=== PATIENT | female | born 1990 | race Caucasian/White ===

== ENCOUNTER 2017-01-18 18:25 | Emergency (ER) | payer MEDICAID, OTHER ==
[2017-01-18 19:17] LABS: Basophils # (auto) 0 uL; Basophils % (auto) 0.4 % (0.0-2.0); CONDITION Y; Eosinophils # (auto) 0 uL; Eosinophils % (auto) 0.6 % (0.0-7.0); Hematocrit 38.6 % (36.0-46.0); Hemoglobin 12.9 g/dL (12.2-16.2); Lymphocytes # (auto) 1.5 uL; Lymphocytes % (auto) 25.3 % (10.0-50.0); Mean Corpuscular Hemoglobin 29.7 pg (28.0-32.0); Mean Corpuscular Hgb Conc. 33.3 g/dL (32.0-36.0); Mean Corpuscular Volume 89.1 fL (80.0-100.0); Mean Platelet Volume 8.7 fL (7.4-10.4); Monocytes # (auto) 0.6 uL; Monocytes % (auto) 9.6 % (0.0-12.0); Neutrophils # (auto) 3.8 uL; Neutrophils % (auto) 64.1 % (37.0-80.0); Platelet Count (auto) 272 10^3/uL (140-450); Red Cell Distribution Width 13.7 % (11.6-16.0)
[2017-01-18 19:36] LABS: Albumin 3.2 g/dL (3.4-5.0); BUN/Creatinine Ratio 11.4; Calcium 7.4 mg/dL (8.5-10.1); Potassium 3.3 mmol/L (3.5-5.1)
[2017-01-18 19:38] LABS: Bilirubin, Total 0.4 mg/dL (0.2-1.0); Total Protein 6.4 g/dL (6.4-8.2)
[2017-01-18] MEDS ORDERED: SODIUM CHLORIDE 0.9% 1,000 ML IV ONE (20:30)
[2017-01-18] MEDS ORDERED: POTASSIUM CHL 20 Meq TABLET PO ONE (20:30)
[2017-01-18 20:59] LABS: Urine Bilirubin Negative (Negative); Urine Blood Negative /uL (Negative); Urine Color Yellow (Yellow); Urine Glucose Normal (Normal); Urine Ketone TRACE (Negative); Urine Mucus FEW (None Seen); Urine Nitrite Negative (Negative); Urine RBC <1 /hpf (0 - 4); Urine Squamous Epithelial Cell FEW /hpf (<5); Urine Urobilinogen Normal (Negative)
[2017-01-18 23:30] VITALS: BP 103/43
[2017-01-19] MEDS ORDERED: ONDANSETRON ODT 4 MG TAB PO ONE (00:45)
== END 2017-01-19 00:51 | disposition home or self-care (01) ==
LOC: ER 18:39
DX: R55 Syncope and collapse (principal); E86.0 Dehydration; E87.6 Hypokalemia; R19.7 Diarrhea, unspecified
CPT/HCPCS: 36415; 74176; 80053; 80307; 81001; 81025; 85025; 93005; 96360; 99285; J7030; Q0162

== ENCOUNTER 2018-12-25 19:06 | Emergency (ER) | payer MEDICAID, OTHER | END 2018-12-25 19:29 | disposition left against medical advice (07) | LOC: ER 19:12 | DX: O20.8 Other hemorrhage in early pregnancy (principal); Z3A.00 Weeks of gestation of pregnancy not specified; Z53.21 Procedure and treatment not carried out due to patient leaving prior to being seen by health care provider ==

== ENCOUNTER 2019-01-21 00:57 | Emergency (ER) | payer MEDICAID, OTHER ==
[~2019-01-21] VITALS: Ht 165.1 cm; Wt 54.4 kg
[2019-01-21 02:33] LABS: Basophils # (auto) 0 uL; Basophils % (auto) 0.3 % (0.0-2.0); Eosinophils # (auto) 0 uL; Hematocrit 38.1 % (36.0-46.0); Hemoglobin 13.2 g/dL (12.2-16.2); Lymphocytes # (auto) 1.2 uL; Lymphocytes % (auto) 9.8 % (10.0-50.0); Mean Corpuscular Hemoglobin 30.5 pg (28.0-32.0); Mean Corpuscular Hgb Conc. 34.6 g/dL (32.0-36.0); Mean Corpuscular Volume 88.2 fL (80.0-100.0); Monocytes # (auto) 0.6 uL; Monocytes % (auto) 4.6 % (0.0-12.0); Neutrophils # (auto) 10.5 uL; Neutrophils % (auto) 85.3 % (37.0-80.0); Nucleated Red Blood Cells % 0.1 %; Platelet Count (auto) 249 10^3/uL (140-450); Red Blood Cells 4.32 10^6/uL (4.0-5.20); Red Cell Distribution Width 14.6 % (11.8-14.3); White Blood Cell 12.3 10^3/uL (4.4-10.8)
[2019-01-21 02:46] LABS: Albumin 3.5 g/dL (3.4-5.0); Anion Gap 10 (5-15); Blood Urea Nitrogen 10 mg/dL (7-18); Calcium 8.6 mg/dL (8.5-10.1); Carbon Dioxide 23 mmol/L (21-32); Chloride 106 mmol/L (98-107); Glucose 104 mg/dL (74-106); Potassium 3.3 mmol/L (3.5-5.1); Sodium 139 mmol/L (136-145)
[2019-01-21 02:48] LABS: Urine Bacteria NONE SEEN /hpf (None Seen); Urine Blood Negative /uL (Negative); Urine Mucus FEW (None Seen); Urine Specific Gravity 1.015 (1.001-1.035); Urine WBC 2 /hpf (0 - 5)
[2019-01-21 02:49] LABS: Alanine Aminotransferase 20 U/L (13-56); Aspartate Aminotransferase 13 U/L (15-37); BUN/Creatinine Ratio 16.1; Blood Alcohol < 3.0 mg/dL (0-5); GFR African American 146 mL/min; GFR Non-African American 121 mL/min
[2019-01-21 02:59] LABS: Alkaline Phosphatase 61 U/L (45-117); Bilirubin, Total 0.4 mg/dL (0.2-1.0)
[2019-01-21 03:03] LABS: Alcohol, Urine < 3.0 mg/dL (0-5); Amphetamine Screen, Urine NEGATIVE (NEGATIVE); Barbiturate Scree,Urine NEGATIVE (NEGATIVE); Benzodiazephine Screen, Urine NEGATIVE (NEGATIVE); Cannabinoid Screen, Urine NEGATIVE (NEGATIVE); Cocaine Screen, Urine NEGATIVE (NEGATIVE); Opiate Scree,Urine NEGATIVE (NEGATIVE); Phencyclidine Screen, Urine NEGATIVE (NEGATIVE)
[2019-01-21 03:12] LABS: Acetaminophen < 2.0 ug/mL (10-30); Salicylate < 1.7 mg/dL (2.8-20.0)
[2019-01-21 07:21] VITALS: BP 99/63
== END 2019-01-21 08:30 | disposition home or self-care (01) ==
LOC: ER 01:02
DX: O20.0 Threatened abortion (principal); O99.611 Diseases of the digestive system complicating pregnancy, first trimester; O9A.211 Injury, poisoning and certain other consequences of external causes complicating pregnancy, first trimester; S80.811A Abrasion, right lower leg, initial encounter; Z3A.01 Less than 8 weeks gestation of pregnancy
CPT/HCPCS: 36415; 76801; 80053; 80307; 80320; 80329; 81001; 84702; 85025

== ENCOUNTER 2019-01-24 13:01 | Emergency (ER) | payer MEDICAID ==
[~2019-01-24] VITALS: Ht 165.1 cm; Wt 55.3 kg
[2019-01-24 13:29] VITALS: BP 88/51
[2019-01-24] MEDS ORDERED: ACETAMINOPHEN 325 MG TAB PO ONE (16:00)
== END 2019-01-24 17:19 | disposition home or self-care (01) ==
LOC: ER 13:01
DX: O26.851 Spotting complicating pregnancy, first trimester (principal); O20.0 Threatened abortion; Z3A.08 8 weeks gestation of pregnancy
CPT/HCPCS: 76801